=== PATIENT | female | born 1990 | race American Indian/Alaskan Native ===

== ENCOUNTER 2020-04-15 02:53 | Emergency (ER) | payer OTHER ==
[2020-04-15 03:45] VITALS: BP 147/101
--- NOTE | 2020-04-15 04:05 | Emergency Department Report ---
- General Chief Complaint: Wound/Laceration Stated Complaint: LACERATION TO FINGER Source: patient Mode of arrival: Ambulatory Limitations: No Limitations - History of Present Illness Initial Comments: Patient is a 30-year-old -[place] African female with no past medical history who presents to the ED with complaint of acute onset persistent painful bleeding right lateral thumb laceration after she accidentally cut her right thumb on a sharp blade at work about 2 hours ago. Patient states that the wound was cleaned and dressed at work and she was then advised to come to the ED for evaluation and treatment. Patient states that she is up to date with her tetanus vaccination having received one about 2 years ago. Patient denies numbness and tingling or weakness of right arm or right hand, nausea, vomiting, syncope, chest pain or shortness of breath or change in vision or fall. -: Sudden, hour(s) (2) Location: other (right thumb laceration) Extremity Location: Right: Hand (lateral right thumb laceration on palmar side) Place: work Patient Tetanus UTD: Yes Context: accidental, sharp object use Associated Symptoms: pain. denies: loss of feeling/numbness, suspect foreign body present, unable to move injured part, weakness followed by dizziness, nausea/vomiting, fever - Related Data Previous Rx's Medication Instructions Recorded Last Taken Type Ibuprofen [Motrin] 800 mg PO Q8HR PRN #24 tablet 04/15/20 Unknown Rx cephALEXin [Keflex] 500 mg PO Q8HR #30 cap 04/15/20 Unknown Rx Allergies Allergy/AdvReac Type Severity Reaction Status Date / Time No Known Allergies Allergy Unverified 04/15/20 03:35 ED Review of Systems ROS: Stated complaint: LACERATION TO FINGER Other details as noted in HPI Constitutional: denies: chills, fever Eyes: denies: eye pain, eye discharge, vision change ENT: denies: ear pain, throat pain Respiratory: denies: cough, shortness of breath, wheezing Cardiovascular: denies: chest pain, palpitations Endocrine: no symptoms reported Gastrointestinal: denies: abdominal pain, nausea, diarrhea Genitourinary: denies: urgency, dysuria, discharge Musculoskeletal: arthralgia (right thumb pain due to a bleeding laceration). denies: back pain, joint swelling Skin: other (Bleeding right thumb laceration). denies: rash, lesions Neurological: denies: headache, weakness, paresthesias Psychiatric: denies: anxiety, depression Hematological/Lymphatic: denies: easy bleeding, easy bruising ED Past Medical Hx - Past Medical History Previous Medical History?: No - Surgical History Past Surgical History?: No Additional Surgical History: L wrist(as a child) - Social History Smoking Status: Never Smoker Substance Use Type: None - Medications Home Medications: Home Medications Medication Instructions Recorded Confirmed Last Taken Type Ibuprofen [Motrin] 800 mg PO Q8HR PRN #24 tablet 04/15/20 Unknown Rx cephALEXin [Keflex] 500 mg PO Q8HR #30 cap 04/15/20 Unknown Rx ED Physical Exam - General Limitations: No Limitations General appearance: alert, in no apparent distress - Head Head exam: Present: atraumatic, normocephalic, normal inspection - Eye Eye exam: Present: normal appearance, PERRL, EOMI Pupils: Present: normal accommodation - ENT ENT exam: Present: normal exam, normal orophraynx, mucous membranes moist, TM's normal bilaterally, normal external ear exam - Neck Neck exam: Present: normal inspection, full ROM - Respiratory Respiratory exam: Present: normal lung sounds bilaterally. Absent: respiratory distress, wheezes, rales, stridor, chest wall tenderness, accessory muscle use, prolonged expiratory - Cardiovascular Cardiovascular Exam: Present: regular rate, normal rhythm, normal heart sounds. Absent: systolic murmur, diastolic murmur, rubs, gallop - GI/Abdominal GI/Abdominal exam: Present: soft, normal bowel sounds. Absent: tenderness, rebound, hyperactive bowel sounds, hypoactive bowel sounds, organomegaly - Extremities Exam Extremities exam: Present: normal inspection, full ROM, tenderness (Palpable right thumb laceration due to a bleeding 1.5 cm laceration). Absent: normal capillary refill, pedal edema, joint swelling - Back Exam Back exam: Present: normal inspection, full ROM. Absent: tenderness, CVA tenderness (R), muscle spasm, paraspinal tenderness, vertebral tenderness - Neurological Exam Neurological exam: Present: alert, oriented X3, CN II-XII intact, normal gait, reflexes normal - Psychiatric Psychiatric exam: Present: normal affect, normal mood - Skin Skin exam: Present: warm, dry, intact, normal color, other (Bleeding 1.5 cm laceration on lateral right thumb). Absent: rash ED Course Vital Signs 04/15/20 03:43 Temperature 98.0 F Pulse Rate 73 Respiratory 18 Rate Blood Pressure 147/101 O2 Sat by Pulse 100 Oximetry - Laceration /Wound Repair Right Lateral Finger Wound Location: upper extremity (Lateral right thumb laceration) Irrigated w/ Saline (ccs): 40 Betadine Prep?: Yes Wound Debrided: extensive Wound Repaired With: Dermabond Layer Closure?: No Sterile Dressing Applied?: Yes Progress: Patient tolerated the procedure well. The wound was then dressed appropriately and the patient was discharged home on pain medication and prophylactic antibiotics. Patient was advised return to the ED immediately if symptoms get worse, otherwise follow-up with her primary care physician in 7 to 10 days for reevaluation. ED Medical Decision Making - Medical Decision Making This is a 30-year-old -[place] female with no past medical history who presents to the ED with complaint of acute onset persistent painful bleeding right lateral thumb laceration after she accidentally cut her right thumb on a sharp blade at work about 2 hours ago. Patient states that the wound was cleaned and dressed at work and she was then advised to come to the ED for evaluation and treatment. Patient states that she is up to date with her tetanus vaccination having received one about 2 years ago. In the ED, patient is alert and oriented x3 and is not in distress. Patient was treated for pain in the ED and the right thumb laceration was cleaned thoroughly with normal saline and Betadine solution. The wound was then approximated and Dermabond applied. Neosporin ointment was applied to the wound as well. The wound was then dressed appropriately and the patient tolerated the procedure well. Patient was discharged home on pain medication and prophylactic antibiotics and was advised to follow-up with her primary care physician in 7 to 10 days for reevaluation or return to the ED immediately if symptoms get worse. - Differential Diagnosis laceration; puncture wound Critical care attestation.: If time is entered above; I have spent that time in minutes in the direct care of this critically ill patient, excluding procedure time. ED Disposition Clinical Impression: Laceration of right thumb without complication Qualifiers: Encounter type: initial encounter Qualified Code(s): S61.011A - Laceration without foreign body of right thumb without damage to nail, initial encounter Disposition: DC-01 TO HOME OR SELFCARE Is pt being admited?: No Does the pt Need Aspirin: No Condition: Stable Instructions: Finger Laceration (ED), Skin Adhesive Care (ED) Additional Instructions: Take medication with food, drink plenty of fluids and follow-up with your primary care physician in 7 to 10 days for reevaluation. Return to the ED immediately if symptoms get worse. Prescriptions: cephALEXin [Keflex] 500 mg PO Q8HR #30 cap Ibuprofen [Motrin] 800 mg PO Q8HR PRN #24 tablet PRN Reason: Pain , Severe (7-10) Referrals: [facility] [Provider Group] - 7-10 days Time of Disposition: 04:02 Print Language: [place]
[2020-04-15] MEDS ORDERED: NEOMY 3.5 MG/BACIT 400 UNITS/POLY B 5000 UNITS/GM OINT PACKET TP ONE (04:14)
[2020-04-15] MEDS ORDERED: IBUPROFEN 800 MG TAB PO ONE (04:14)
== END 2020-04-15 04:37 | disposition home or self-care (01) ==
LOC: ED 02:53
DX: S61.011A Laceration without foreign body of right thumb without damage to nail, initial encounter (principal); Z79.899 Other long term (current) drug therapy; W26.8XXA Contact with other sharp object(s), not elsewhere classified, initial encounter; Y93.89 Activity, other specified; Y92.89 Other specified places as the place of occurrence of the external cause; Y99.8 Other external cause status
CPT/HCPCS: 99282; A6250

== ENCOUNTER 2022-03-21 08:26 | Emergency (ER) | payer OTHER ==
[2022-03-21 08:34] VITALS: BP 155/95
[2022-03-21 10:01] LABS: Basophils # (Auto) 0.1 K/mm3 (0.0-0.1); Eosinophils # (Auto) 0.1 K/mm3 (0.0-0.4); Eosinophils % (Auto) 1.8 % (0.0-4.3); Hematocrit 43.1 % (30.3-42.9); Hemoglobin 14.3 gm/dl (10.1-14.3); Lymphocytes # (Auto) 2.6 K/mm3 (1.2-5.4); Lymphocytes % (Auto) 32.8 % (13.4-35.0); Mean Corpuscular HGB Conc 33 % (30-34); Mean Corpuscular Volume 89 fl (79-97); Monocytes # (Auto) 0.6 K/mm3 (0.0-0.8); Platelet Count 321 K/mm3 (140-440); Red Blood Count 4.83 M/mm3 (3.65-5.03)
[2022-03-21 10:23] LABS: Alanine Aminotransferase 10 units/L (7-56); Albumin 4.1 g/dL (3.9-5); Blood Urea Nitrogen 12 mg/dL (7-17); Calcium 9.4 mg/dL (8.4-10.2); Hemolysis Index 1
[2022-03-21 10:38] LABS: BUN/Creatinine Ratio 17
--- NOTE | 2022-03-21 11:33 | Emergency Department Report ---
Minor Respiratory - HPI Chief Complaint: Upper Respiratory Infection Stated Complaint: CHEST PAIN/COUGH/CONGESTED Time Seen by Provider: 03/21/22 11:29 Duration: 3 Days Pain Location: Chest Severity: mild Minor Respiratory: Yes Rhinorrhea, Yes Able to Tolerate Fluids, Yes Cough, No Sore Throat, No Ear Pain, No Sick Contacts, No Hemoptysis, No Chest Pain, No Shortness of Breath, No Fever Other History: Patient is a 32-year-old female that comes to the ER with a 5-day history of cough and congestion. She states she is taking [id number] Mucinex. She has yellow sputum. She is immunized for COVID. ED Review of Systems ROS: Stated complaint: CHEST PAIN/COUGH/CONGESTED Other details as noted in HPI Comment: All other systems reviewed and negative ED Past Medical Hx - Past Medical History Hx Hypertension: Yes - Surgical History Past Surgical History?: Yes Additional Surgical History: L wrist(as a child) - Family History Family history: no significant - Social History Smoking Status: Never Smoker Substance Use Type: None - Medications Home Medications: Home Medications Medication Instructions Recorded Confirmed Last Taken Type Benzonatate [Tessalon Perles] 100 mg PO Q12H PRN #20 capsule 03/21/22 Unknown Rx Cetirizine HCl [ZyrTEC] 10 mg PO DAILY #30 capsule 03/21/22 Unknown Rx Fluticasone [Flonase] 1 spray NS QDAY #1 bottle 03/21/22 Unknown Rx predniSONE [Deltasone] 20 mg PO DAILY #5 tablet 03/21/22 Unknown Rx Minor Respiratory Exam - Exam General: Vital signs noted. No distress. Alert and acting appropriately. HEENT: Yes Moist Mucous Membranes, No Pharyngeal Erythema, No Pharyngeal Exudates, No Rhinorrhea, No Conjuctival Injection, No Frontal Tenderness, No Maxillary Tenderness Ear: Neither TM Bulge, Neither TM Erythema, Neither EAC Pain, Neither EAC Discharge Neck: Yes Supple, No Adenopathy Lungs: Yes Good Air Exchange, No Wheezes, No Ronchi, No Stridor, No Cough, No Labored Respirations, No Retractions, No Use of Accessory Muscles, No Other Abnormal Lung Sounds Heart: Yes Regular, No Murmur Abdomen: Yes Normal Bowel Sounds, No Tenderness, No Peritoneal Signs Skin: No Rash, No Edema Neurologic: Alert and oriented, no deficits. Musculoskeletal: Unremarkable. ED Course Vital Signs 03/21/22 08:30 Temperature 98.6 F Pulse Rate 71 Respiratory 16 Rate Blood Pressure 155/95 O2 Sat by Pulse 99 Oximetry ED Medical Decision Making - Lab Data Result diagrams: 03/21/22 09:13 03/21/22 09:13 - Radiology Data Radiology results: report reviewed, image reviewed No acute process - Medical Decision Making Labs 03/21/22 03/21/22 09:13 09:13 WBC 8.0 RBC 4.83 Hgb 14.3 Hct 43.1 H MCV 89 MCH 30 MCHC 33 RDW 13.0 L Plt Count 321 Lymph % (Auto) 32.8 [place] % (Auto) 7.0 Eos % (Auto) 1.8 Baso % (Auto) 1.0 Lymph # (Auto) 2.6 [place] # (Auto) 0.6 Eos # (Auto) 0.1 Baso # (Auto) 0.1 Seg Neutrophils % 57.4 Seg Neutrophils # 4.6 Sodium 139 Potassium 4.3 Chloride 105.2 Carbon Dioxide 25 Anion Gap 13 BUN 12 Creatinine 0.7 Estimated GFR > 60 BUN/Creatinine Ratio 17 Glucose 103 H Calcium 9.4 Total Bilirubin 0.20 AST 13 ALT 10 Alkaline Phosphatase 65 Total Protein 7.3 Albumin 4.1 Albumin/Globulin Ratio 1.3 Vital Signs 03/21/22 08:30 Temperature 98.6 F Pulse Rate 71 Respiratory 16 Rate Blood Pressure 155/95 O2 Sat by Pulse 99 Oximetry No indication for antibiotics at this time. Patient being discharged home with discharge plan of care including diet, activity, medications and follow-up. She has prescriptions for sign and symptom relief. She will follow-up with PCP. Patient verbalizes understanding of plan of care - Differential Diagnosis Rule out pneumonia Critical care attestation.: If time is entered above; I have spent that time in minutes in the direct care of this critically ill patient, excluding procedure time. ED Disposition Clinical Impression: Bronchitis Disposition: 01 HOME / SELF CARE / HOMELESS Is pt being admited?: No Does the pt Need Aspirin: No Condition: Stable Instructions: Chronic Bronchitis (ED), Upper Respiratory Infection, Adult, [id number] Additional Instructions: STAY WELL HYDRATED WITH WATER MOTRIN OR TYLENOL FOR PAIN OR FEVER FOLLOW UP WITH PCP IN 48 H FOR RECHECK REFERRAL BELOW MEDS ORDERED TODAY Referrals: AMARIS OQUENDO MD [Staff Physician] - 3-5 Days Forms: Work/School Release Form(ED) Time of Disposition: 11:31
--- NOTE | 2022-03-21 11:34 | XRay Report ---
CHEST 2 VIEWS INDICATION / CLINICAL INFORMATION: cough. COMPARISON: None available. FINDINGS: SUPPORT DEVICES: None. HEART / MEDIASTINUM: No significant abnormality. LUNGS / PLEURA: No significant pulmonary or pleural abnormality. No pneumothorax. ADDITIONAL FINDINGS: No significant additional findings. IMPRESSION: 1. No acute findings. Signer Name: Erick Alonso DO Signed: 03/21/2022 11:29 AM Workstation Name: [id number]
== END 2022-03-21 13:30 | disposition home or self-care (01) ==
LOC: ED 08:26
DX: J40 Bronchitis, not specified as acute or chronic (principal); I10 Essential (primary) hypertension; Z98.890 Other specified postprocedural states
CPT/HCPCS: 36415; 71046; 80053; 85025; 99283